=== PATIENT | male | born 2000 | race African-American/Black ===

== ENCOUNTER 2021-04-26 01:52 | Emergency (ER) | payer MEDICAID ==
[~2021-04-26] VITALS: Ht 185.4 cm; Wt 80.0 kg
[2021-04-26] MEDS ORDERED: LORAZEPAM 2MG/ML CPJ IM STA (02:26)
[2021-04-26] MEDS ORDERED: HALOPERIDOL LACTATE 5MG/ML VIAL IM STA (02:26)
[2021-04-26 03:19] LABS: CLARITY URINE CLEAR (CLEAR); COLOR URINE YELLOW (YELLOW); KETONES URINE NEGATIVE (NEGATIVE); LEUKOCYTE ESTERASE URINE NEGATIVE (NEGATIVE); NITRITE URINE NEGATIVE (NEGATIVE); OCCULT BLOOD URINE NEGATIVE (NEGATIVE); PROTEIN URINE NEGATIVE (NEGATIVE); SPECIFIC GRAVITY URINE 1.023 (1.005-1.030)
[2021-04-26 03:28] LABS: *AMPHETAMINES SCREEN URINE NEGATIVE (NEGATIVE); *BARBITURATES SCREEN URINE NEGATIVE (NEGATIVE); CANNABINOID URINE SCREEN NEGATIVE (NEGATIVE); PHENCYCLIDINE URINE SCREEN NEGATIVE (NEGATIVE)
[2021-04-26 03:29] LABS: *BENZODIAZEPINES SCREEN URINE NEGATIVE (NEGATIVE); *COCAINE SCREEN URINE NEGATIVE (NEGATIVE); METHADONE URINE SCREEN NEGATIVE (NEGATIVE); OPIATES URINE SCREEN NEGATIVE (NEGATIVE)
[2021-04-26 04:05] LABS: BASOPHILS % 0.5 % (0.0-2.0); EOSINOPHILS % 0.9 % (0.0-5.0); HEMATOCRIT. 41.1 % (42.0-52.0); HEMOGLOBIN. 13.7 g/dL (14.0-18.0); LYMPHOCYTES % 14.2 % (20.0-50.0); MEAN CORPUSCULAR HEMOGLOBIN 28.2 pg (28.0-32.0); MEAN CORPUSCULAR VOLUME 84.4 fL (80.0-94.0); MEAN PLATELET VOLUME 7.3 fl (7.4-10.4); MONOCYTES % 4.8 % (2.0-8.0); NEUTROPHILS % 79.6 % (40.0-76.0); PLATELET 287 x1000/uL (130-400); RED BLOOD CELL COUNT 4.87 mill/uL (4.7-6.1); RED CELL DISTRIBUTION WIDTH 13.9 % (11.6-14.6)
[2021-04-26 04:24] LABS: CHLORIDE 109 mEq/L (98-107)
[2021-04-26 04:28] LABS: ETHANOL BLOOD < 10 mg/dL
[2021-04-26 21:25] VITALS: BP 126/84
== END 2021-04-26 21:33 | disposition short-term general hospital (02) ==
LOC: ER 01:52
DX: R45.851 Suicidal ideations (principal); Z20.822 Contact with and (suspected) exposure to COVID-19
CPT/HCPCS: 36415; 80053; 80305; 80307; 80320; 80329; 81003; 85025; 96372; 99285; C9803; J1630; J2060; U0003; U0005; G0480

== ENCOUNTER 2021-07-25 17:29 | Emergency (ER) | payer MEDICAID ==
[~2021-07-25] VITALS: Ht 193 cm; Wt 79.0 kg
[2021-07-25] MEDS ORDERED: IBUPROFEN 400MG TABLET PO ONE (18:15)
[2021-07-25 18:21] VITALS: BP 140/70
[2021-07-25] MEDS ORDERED: IBUP-2028 MT (19:25)
== END 2021-07-25 19:36 | disposition home or self-care (01) ==
LOC: ER 17:29
DX: S93.501A Unspecified sprain of right great toe, initial encounter (principal); I35.8 Other nonrheumatic aortic valve disorders; F31.9 Bipolar disorder, unspecified; W22.09XA Striking against other stationary object, initial encounter; Y93.89 Activity, other specified; Y92.9 Unspecified place or not applicable
CPT/HCPCS: 73630; 99283

== ENCOUNTER 2021-10-02 18:09 | Emergency (ER) | payer MEDICAID ==
[~2021-10-02] VITALS: Ht 198.1 cm; Wt 73.0 kg
[~2021-10-02 18:09] MED LIST: IBUP-2028 MT
[2021-10-02 18:35] VITALS: BP 129/91
[2021-10-02] MEDS ORDERED: IBUPROFEN 600MG TABLET PO ONE (18:45)
[2021-10-02] MEDS ORDERED: LIDOCAINE HCL 1% 20ML VIAL (Pyxis) INJ INFIL ONE (19:15)
[2021-10-02] MEDS ORDERED: DOXYCYCLINE HYCLATE 100MG CAPSULE PO ONE (19:15)
[2021-10-02] MEDS ORDERED: CEFTRIAXONE SODIUM 500 MG/VIAL IM ONE (19:15)
[2021-10-02 19:48] LABS: CLARITY URINE CLOUDY (CLEAR); COLOR URINE YELLOW (YELLOW); KETONES URINE TRACE (NEGATIVE); LEUKOCYTE ESTERASE URINE 3+ (NEGATIVE); NITRITE URINE NEGATIVE (NEGATIVE); OCCULT BLOOD URINE TRACE (NEGATIVE); PH URINE 7.5 (4.5-8.0); PROTEIN URINE 1+ (NEGATIVE); SPECIFIC GRAVITY URINE 1.028 (1.005-1.030)
[2021-10-02] MEDS ORDERED: DOXY-326 MT (20:29)
[2021-10-02] MEDS ORDERED: IBUP-2029 MT (20:29)
[2021-10-05 04:09] LABS: NEISSERIA GONORRHOEAE NAA Positive (Negative)
== END 2021-10-02 21:16 | disposition home or self-care (01) ==
LOC: ER 18:09
DX: N34.2 Other urethritis (principal); Z11.3 Encounter for screening for infections with a predominantly sexual mode of transmission; M41.9 Scoliosis, unspecified
CPT/HCPCS: 81003; 87077; 87086; 87491; 87591; 96372; 99283; J0696; J3490